=== PATIENT | male | born 1975 | race Caucasian/White ===

== ENCOUNTER 2023-06-15 18:43 | Emergency (ER) | payer MEDICAID ==
[~2023-06-15] VITALS: Ht 175.3 cm; Wt 73.2 kg
[~2023-06-15 18:43] MED LIST: FOLI1TAB90 PO; INSU100S45 SUBQ; QUET100T PO; THE PO; THIA-34 PO
[2023-06-15 19:17] VITALS: BP 100/67; PULSE 97; RESP 20; TEMP 98.4; O2SAT 98
[2023-06-15 22:45] VITALS: BP 100/67; PULSE 97; RESP 20; TEMP 98.4; O2SAT 98
[2023-06-16] MEDS ORDERED: INSU100S45 SUBQ ×2 (07:30→07:35)
[2023-06-16] MEDS ORDERED: NAPR-1704 PO ×2 (07:30→07:35)
[2023-06-16] MEDS ORDERED: CEPH-588 PO ×2 (07:30→07:35)
== END 2023-06-15 22:45 | disposition left against medical advice (07) ==
LOC: MED 18:43
DX: M79.671 Pain in right foot (principal); Z53.21 Procedure and treatment not carried out due to patient leaving prior to being seen by health care provider
CPT/HCPCS: 99281

== ENCOUNTER 2023-06-16 05:15 | Emergency (ER) | payer MEDICAID ==
[~2023-06-16] VITALS: Ht 175.3 cm; Wt 72.6 kg
[2023-06-16 05:24] VITALS: BP 106/73; PULSE 87; RESP 20; TEMP 98.3; O2SAT 100
[2023-06-16 06:58] LABS: BASOPHILS # (AUTO) 0.1 K/uL (0.00-0.22); BASOPHILS % (AUTO) 0.6 % (0.0-2.0); EOSINOPHILS % (AUTO) 0.4 % (0.0-4.0); HEMATOCRIT 36.2 % (36-52); HEMOGLOBIN 12.6 g/dL (12.0-18.0); LYMPHOCYTES # (AUTO) 2.2 K/uL (2.0-11.5); LYMPHOCYTES % (AUTO) 23.6 % (20.5-51.1); MEAN CORPUSCULAR HEMOGLOBIN 30 pg (27-31); MEAN CORPUSCULAR HGB CONC 35 g/dL (33-37); MONOCYTES # (AUTO) 0.8 K/uL (0.8-1.0); MONOCYTES % (AUTO) 8.8 % (1.7-9.3); NEUTROPHILS # (AUTO) 6.1 K/uL (1.8-7.7); NEUTROPHILS % (AUTO) 66.6 % (42.2-75.2); PLATELET COUNT (AUTO) 569 K/uL (140-450); RED CELL DISTRIBUTION WIDTH 13.1 % (11.6-13.7); WHITE BLOOD COUNT (AUTO) 9.2 K/uL (4.8-10.8)
[2023-06-16 07:17] LABS: ALBUMIN 3.2 g/dL (3.4-5.0); ANION GAP 13.7 (8-16); CALCIUM 8.8 mg/dL (8.5-10.1); CARBON DIOXIDE 27.7 mmol/L (21-32); CREATININE 1.2 mg/dL (0.6-1.3); POTASSIUM 4.4 mmol/L (3.5-5.1); TOTAL BILIRUBIN 0.5 mg/dL (0.0-1.0); TOTAL PROTEIN, SERUM 8.7 g/dL (6.4-8.2)
[2023-06-16 07:21] LABS: LACTIC ACID 1.8 mmol/L (0.4-2.0)
[2023-06-16] MEDS ORDERED: CEPH-588 PO ×2 (07:30→07:35)
[2023-06-16] MEDS ORDERED: INSU100S45 SUBQ ×2 (07:30→07:35)
[2023-06-16] MEDS ORDERED: NAPR-1704 PO ×2 (07:30→07:35)
[2023-06-16 07:55] VITALS: BP 106/73; PULSE 87; RESP 20; TEMP 98.3; O2SAT 100
== END 2023-06-16 07:50 | disposition home or self-care (01) ==
LOC: MED 05:15
DX: L03.116 Cellulitis of left lower limb (principal); E11.621 Type 2 diabetes mellitus with foot ulcer; Z79.4 Long term (current) use of insulin; Z79.899 Other long term (current) drug therapy
CPT/HCPCS: 36415; 73630; 80053; 82948; 83605; 85025; 87040; 90471; 90715; 99284; Q0092